=== PATIENT | female | born 1960 | race Caucasian/White ===

== ENCOUNTER 2018-04-02 08:37 | Emergency (ER) | payer OTHER ==
[~2018-04-02] VITALS: Ht 162.6 cm; Wt 126.1 kg
[2018-04-02 08:44] VITALS: Ht 162.6 cm; Wt 126.1 kg
[2018-04-02 10:32] VITALS: BP 128/81
== END 2018-04-02 10:32 | disposition home or self-care (01) ==
LOC: ED 08:37
DX: S16.1XXA Strain of muscle, fascia and tendon at neck level, initial encounter (principal); R51 Headache; I10 Essential (primary) hypertension; E11.9 Type 2 diabetes mellitus without complications; Z88.1 Allergy status to other antibiotic agents; Z88.2 Allergy status to sulfonamides; V43.52XA Car driver injured in collision with other type car in traffic accident, initial encounter; Y93.I9 Activity, other involving external motion; Y92.488 Other paved roadways as the place of occurrence of the external cause; Y99.8 Other external cause status
CPT/HCPCS: J3010